=== PATIENT | male | born 1950 | race African-American/Black ===

== ENCOUNTER 2025-03-30 01:34 | Day surgery (SDC) | payer OTHER, SELFPAY ==
[2025-03-17 10:24] VITALS: BMI 31.6
[2025-03-30] VITALS (7 sets, daily range): BP systolic 100–157; BP diastolic 58–89; PULSE 62–81; RESP 18–21; TEMP 36.7; O2SAT 99–100; BMI 29.9
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
--- OUTSIDE RECORDS SUMMARY | 2025-03-30 01:37 | XMS_ITS | Clinical Summary ---
Author Organization [facility] Address [address] [place] [address] Care Team Providers Care Office Worker Name Role Phone Unavailable Primary Care Provider Unavailabl e Social History Tobacco Use Types Packs/Day Years Used Date Smoking Tobacco: Never Assessed Sex and Gender Information Value Date Recorded Sex Assigned at Not on file Legal Sex Male 11:40 AM [employer]OURNEY[employer]ACH[employer] Gender Identity Not on file Sexual Orientation Not on file Plan of Treatment Health Maintenance Due Date Last Done Comments Hepatitis C Virus (HCV) Screening 1950 TdaP Immunization 1950 Colonoscopy 1996 Colorectal Cancer Screening 1996 Cologuard 2001 Immunochemical Fecal Occult Blood 2001 Pneumococcal Immunization (5 0+ years) (1 of 1 - PCV) 2001 Zoster Immunization (1 of 2) 2001 Influenza Immunization (#1) 05/11/202408/10, 07/02/2016, 06/26/2016 SARS-COV-2 Immunization ( - 2023- season) 2024 Respiratory Syncytial Virus (RSV) Immunization (Adult) (1 - 1-dose 75+ series) 2026 Hepatitis B Immunization Aged Out No longer eligible based on patient's age to complete this topic Meningococcal Immunization (ACWY) Aged Out No longer eligible b ased on patient's age to complete this topic Rotavirus Immunization Aged Out No lo nger eligible based on patient's age to complete this topic
--- OUTSIDE RECORDS SUMMARY | 2025-03-30 01:37 | XMS_ITS | Clinical Summary ---
Author Organization [facility] Address [address] [address] Care Team Providers Care Press Operator Instant Print Shop Name Role Phone Sonu Berry MD Primary [...] nightly 30 tablet 11 2 Active multivitamin-m dw-[id number]-vit K 45 mg iron- 800 mcg-120 mcg [...] without complication Atherosclerotic heart diseas e of [place] coronary artery without angina pectoris 09/07/2020 Essential [...] RS) 11/30/2020,11/11/2020 Pneumococcal Conjugate PCV 13 09/23/2020 Surgical History Surgery Date Site/Laterality Comments BRAIN SURGERY Family History Medical History Relation Name Comments Cancer Brother 1 Family history of malignant neoplasm - (Added by TW Conv) Diabetes Brother 2 Family history of diabetes mellitus - (Added by TW Conv) Heart disease Brother 2 Cancer Father Cancer Mother Diabetes Mother Diabetes Paternal Grandmother Cancer Sister Diabetes Sister Family history of diabetes mellitus - (Added by TW Conv) Relation Name Status Comments Brother 1 Brother 2 Father Mother Paternal Grandmother Sister Social History Tobacco Use Types Packs/Day Years [...] week 03/17/2022 How often do you attend [facility] or hoahaoism services? Never 03/17/2022 Do you belong to any clubs o r organizations such as religion groups, unions, fraLaFourchette or athletic groups, or school groups? Yes [...] place to sleep or slept in a mcc (including now)? 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 Gender Identity Not on file Sexual Orientation Not on file Obstetrics History Last Filed Vital Signs Vital Sign Reading Time Taken Comments Blood Pressure 115/81 11/20/2023 10:09 AM CDT Pulse 72 11/20/2023 10:09 AM CDT Temperature 36.8 C (98.2 F) 03/21/2022 8:04 AM CDT Respiratory Rate 18 03/21/2022 8:04 AM CDT Oxygen Saturation 99% 03/21/2022 8:04 AM CDT Inhaled Oxygen Concentration - - Weight 103.8 kg (228 lb 12.8 oz) 11/16/2022 9:57 AM CLAM DREDGER Height 182.9 cm (6') 11/20/2023 10:09 AM CDT Body Mass Index 31.03 11/16/2022 9:57 AM CLAM DREDGER Plan of Treatment Health Maintenance Due Date Last Done Comments Albumin Creatinine Ratio, Urine 1950 Colon Cancer Screening-Colonoscopy 1950 Hepatitis C Screening 1950 Prostate Cancer Screening-PSA 1950 Dilated Eye Exam 1950 Foot Exam 1950 DTaP/Tdap/Td Vaccine (1 - Tdap) 1962 Hepatitis B Screening 1969 Zoster Vaccine (1 of 2) 2001 Abdominal Aortic Aneurysm (A AA) Screen 2016 02/08/2015, 01/19/2015 Well Visit 65+ 2016 Hemoglobin A1C 08/21/2022 02/19/2022 Depression Screening 02/18/2023 02/18/2022 Lipid Panel 03/16/2023 03/16/2022 eGFR 03/20/2023 03/20/2022, 03/10, 03/18/2022, Additional history exists Fall Risk Assessment 03/21/2023 03/21/2022 Covid-19 Vaccine (2023-2 5 season) 2024 09/24/2021, 12/04/2020, 11/30/2020, Additional history exists Influenza Vaccine (#1) 2025 , 06/10/2020, 08/19/2019, Additional history exists Pneumococcal vaccine 65+ Completed 01/03/2024, 09/10 Procedures Procedure Name Priority Date/Time Associated Diagnosis [...] 90 - 130 mL/min/1. 73 m2 [facility] Comment: Interpretive Data Reference Interval Normal >/= [...] 9:22 PM CDT 03/20/2022 9:35 PM CDT us Juan Dey MD LAB BLOOD ORDERABLES F inal Result [facility] [place] [address] * (ABNORMAL) Lipid panel (03/16/2022 11:08 PM CDT) Cholesterol 79 30 - 199 mg/dL [facility] Comment: Interpretive Data Ages < or [...] on 2018. Triglycerides 59 <=149 mg/dL [facility] Comment: Interpretive Data Ages < or [...] Pediatrics 2011;128:S213 2. NCEP Expert Panel. Circulation 2003;110:227 Current Interpretive Data was last revised on 2018. HDL 39(L) >=40 mg/dL [facility] Comment: Interpretive Data Ages < or [...] 2018. LDL, calculated 28 <=129 mg/dL [facility] Comment: Interpretive Data Ages < or [...] on 2018. Non-HDL Cholesterol 40 mg/dL [facility] Comment: Interpretive Data Ages < or [...] last revised on 2018. Chol/HDL ratio 2 [facility] Blood 03/16/2022 11:0 8 PM CDT 03/17/2022 6:28 AM CDT Juan Dey MD LAB BLOOD ORDERABLES F inal Result [facility] Department [place] [address] * (ABNORMAL) Hemoglobin A1c (02/19/2022 12:25 AM CDT) Hgb A1C 5.9(H) 4.0 - 5.6 % [facility] Estimated Average Glucose 123 mg/dL [facility] Comment: The ADA recommends reporting an estimated Average Glucose (eAG) with all Hemoglobin A1c results using the equation derived from a study of 507 normal and diabetic adults. Minority populations were underrepresented and children were not included. (Diabetes Care 2020; 43(S1): S66-S76). The eAG is not equivalent to a fasting glucose. Blood 02/19/2022 12:2 5 AM CDT 02/19/2022 12:39 AM CDT Génesis Oliva Gould NP LAB BLOOD ORDERABLES Final Result [facility] Department [place] [address] * CT Abdomen Pelvis W Contrast (02/08/2015 2:35 AM CDT) Anatomical Region Laterality Modality Body N/A Computed Tomogra phy 02/08/2015 2:35 AM CDT Narrative 02/08/2015 9:28 AM CDT ROBBIE TIAN M.D. HAMILTON DE LEON M.D. FINAL REPORT The radiology attending physician has personally reviewed this study, and has reviewed and/or edited this written report and agrees with it. ACC# Date Time Exam [id number] Feb 08, 2015 02:35:[id number] Abd & Pelvis with cont ACC# Date Time Exam [id number] Feb 08, 2015 02:35:[id number] Abd & Pelvis with cont EXAMINATION: [...] TIAN M.D. on Feb 08 2015 9:28A [id number] Procedure Note Provider, MD Eh - 01/01/2017 ROBBIE TIAN M.D. HAMILTON DE LEON M.D. FINAL REPORT The radiology attending physician has personally reviewed this study, and has reviewed and/or edited this written report and agrees with it. ACC# Date Time Exam [id number] Feb 08, 2015 02:35:[id number] Abd & Pelvis with cont ACC# Date Time Exam [id number] Feb 08, 2015 02:35:[id number] Abd & Pelvis with cont EXAMINATION: [...] TIAN M.D. on Feb 08 2015 9:28A [id number] Historical Provider MD [facility] CT PROCEDURES Final R esult from Last 3 Months or Most Recently Relevant to Health Maintenance Insurance IDPA [facility] MEDICARE HMO [facility] MEDICARE HMO [employer] CHOICE MEDICARE PPO MEDICARE ADVANTAGE [employer] CHOICE MEDICARE PPO IDME Advance Directives For more information, please contact: [phone] * Full Code (Latest Code Status on File) Date Activated Date Inactivated Comments 03/17/2022 3:24 AM 03/21/2022 5:27 PM * Full Code Date Activated Date Inactivated Comments 02/18/2022 5:38 PM 02/22/2022 6:32 PM * Full Code Date Activated Date Inactivated Comments 02/03/2022 6:19 AM 02/04/2022 5:26 PM Care Teams Press Operator Instant Print Shop Relationship Specialty Start Date End Date Sonu Berry MD [address] [place] [address] PCP - General Internal Medicine 02/17/22
--- OUTSIDE RECORDS SUMMARY | 2025-03-30 01:37 | XMS_ITS ---
Author Organization [facility] Address [address] [address] [place] [place] [address] Care Team Providers Care Bobbin Dumper Name Role Phone Sonu Berry MD Primary Care Provide r Active Problems Problem Noted Date Diagnosed Date [...] without complication Atherosclerotic heart diseas e of [place] coronary artery without angina pectoris 09/07/2020 Essential (primary) hypertension 09/07/2020 Hyperlipidemia 09/07/2020 Ventricular tachycardia 08/17/2020 Dizziness 07/27/2020 Malignant neoplasm of colon 07/27/2020 Shortness of breath 07/27/2020 Smoker 07/27/2020 History of malignant neoplasm of colon 5 Obesity with body mass index 30 or greater 12/30 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 Past Treatment and Therapy Plans No past plan information found. Lifetime Dose Tracking * Chemical Lifetime Dose Automatic Entry Manual Entr y Fluoro Time 57.3 minutes 57.3 minutes 0 minutes Air kerma at the reference point (Ka,r) 3,401 mGy 3 ,401 mGy 0 mGy DLP 14,102 mGycm 14,102 mGycm 0 mGycm
--- OUTSIDE RECORDS SUMMARY | 2025-03-30 01:37 | XMS_ITS | Continuity of Care Document ---
Author Organization [facility] Address [address] [place] [address] Phone Care Team Providers Care Cane Flume Watcher Name Role Phone Nurse, Registered Unavailable Unavailable Procedures Procedure Date Immunization Admin COVID19 Pfizer Dose 3 COVID19 Vaccine Pfizer Immunization Admin COVID19 Pfizer Dose 3 Advance Directives Directive Yes / No Effective Date File Name No Information Encounters Encounter Description Practice Location Reason(s) For Visit Diagnoses Date Provider Providers Copied on Encounter [facility] , [address], [place], [place], [id number], tel:[phone] COVID Mobile COVID (chief complaint) No Information Nurse Registered . [address], [place], [place], [id number], . tel:[phone] Referring Provider: Hiral Nevarez, [address], [place], [address]. tel:[phone] Family History Family Member Type Diagnosis Age At Onset No Information Immunizations Vaccine Date Status Comments COVID-19 Pfizer (12 years and older) administered Note: Pt tolerated w ell admin by Jeronimo Bar MA ; Source: New Immunization Record Payers Payer name Insurance type Covered libertarian ID Authoriza tion(s) COVID19 HRSA Uninsured Testi ng and Treat CI [id number] Social History Type Description Quantity Date Captured Comments Sex Male Smoking Status No Information Chief Complaint And Reason For Visit From encounter dated '09/24/2021 00:00'. COVID (chief complaint). Description: Booster COVID-19 Pfizer (12 years and older) [id number] Administered New 09/24/2021 09/24/2021 02:06 PM Denise Cohen 0.3 [id number] Dose 3 03/09/2022 [employer] Intramuscular Left Deltoid Pt tolerated well admin by Denise Thompson MA, [place] (09/24/2021) Reason For Referral Reason For Referral No Information History Of Present Illness Encounter Date Complaint History Of Prese nt Illness COVID Booster COVID-19 Pfizer (12 years and older) 208 [id number] Administered New 09/24/2021 09/24/2021 02:06 PM Denise Cohen 0.3 [id number] Dose 3 03/09/2022 [employer] Intramuscular Left Deltoid Pt tolerated well admin by Denise Thompson MA, Celsey (09/24/2021) Functional Status Date Functional Assessmen t No Information Instructions Date Instruction Additional Infor mation No Information Assessments Type Assessment Date No Information Patient Care Teams Name Effective Dates (start - stop) Status Members No Information
--- OUTSIDE RECORDS SUMMARY | 2025-03-30 01:37 | XMS_ITS | Clinical Summary ---
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 Gender Identity Not on file Sexual Orientation Not on file Plan of Treatment Health Maintenance Due Date Last Done Comments Colorectal Cancer Screening Colonoscopy (10 Years) 1950 Hepatitis C 1969 DTaP, Tdap and Td Vaccines ( 1 - Tdap) 1970 Pneumococcal Vaccine: 50+ Ye ars (1 of 1 - PCV) 2001 Zoster Vaccines (1 of 2) 2001 Annual Medicare Wellness Visit 2016 COVID-19 Vaccine (2023-2 5 season) 2024 RSV Immunization or 60+ Years (1 - 1-dose 75+ series) 2026 Meningococcal B Vaccine Aged Out No l onger eligible based on patient's age to complete this topic Meningococcal Vaccine Aged Out No bisi hien eligible based on patient's age to complete this topic RSV Immunizations Under 20 Months Aged Out No longer eligible based on patient's age to complete this topic Insurance [address] [place] [address] MEDICAID MED REPLACE [facility] MEDICARE SOLUT[place] [id number]
[2025-03-30] MEDS: LACTATED RINGERS 1,000 ML 150 ML IV CONT (08:16)
--- NOTE | 2025-03-30 08:45 | WPDANESEPPF ---
Anes - Initial Pre Proc Eval Procedure: Operation Date: 03/30/25 09:30 Proposed Procedures p Screening Colonoscopy - Collins Castro MD Date/Time: 03/30/25 08:45 Surgeon: Collins Castro MD Pre Op Diagnosis: screening colon Patient Data Age: 74 Gender: M Height: 1.83 m Weight: 100.4 kg Last Vital Signs Temp 98.0 F 03/30/25 07:55 Pulse 81 03/30/25 07:55 Resp 18 03/30/25 07:55 BP 140/89 03/30/25 07:55 Pulse Ox 99 03/30/25 07:55 O2 Del Method Room Air 03/30/25 07:55 Allergies Allergy/AdvReac Type Severity Reaction Status Date / Time No Known Allergies Allergy Verified 03/30/25 08:00 Home Medications ?Medication ?Instructions ?Recorded ?Confirmed ?Type albuterol sulfate 90 mcg/actuation 1 inh inhalation DAILY 03/17/25 03/30/25 History aerosol inhaler atorvastatin 40 mg tablet 40 mg PO QPM 03/17/25 03/30/25 History bisacodyl 5 mg tablet (Laxative 5 mg PO Q6H PRN constipation 03/17/25 03/17/25 History (bisacodyl)) ipratropium bromide 42 mcg (0.06 2 spray intranasal DAILY 03/17/25 03/30/25 History %) nasal spray losartan 25 mg tablet 25 mg PO DAILY 03/17/25 03/30/25 History metformin 500 mg tablet 500 mg PO BID 03/17/25 03/30/25 History metoprolol succinate 25 mg 25 mg PO Q12H 03/17/25 03/30/25 History tablet,extended release 24 hr Laboratory Tests 03/30/25 08:15 POC Capillary Glucose 121 H mg/dl (65-105) Patient hx anesthesia problems: none Family hx anesthesia problems: none Results Review: All pre-operative results and documents have been reviewed as part of the pre-operative evaluation. [facility] Social History Social History Years smoked: 43 Smoking status: Current every day smoker Tobacco type: cigarettes Additional smoking assessment comments: 1 pack a week Living arrangements: alone Spiritual care concerns: No Anes - Eval Final PreProcedure Day of Procedure 03/30/25 08:45 Patient weight: obese Heart: regular rate and rhythm Lungs: clear to auscultation Airway: Mallampati scale class II Neurological: alert and oriented Last oral intake: >/= 8 hours ASA classification: III Emergent: no Anesthetic plan: proceed Anesthesia type and monitoring: general GIVS and standard monitoring Results Review: All pre-operative results and documents have been reviewed as part of the pre-operative evaluation. Informed Consent: The patient's anesthetic plan and its attendant risks and benefits were discussed with the patient/family/POA. Questions were solicited and answers provided to the satisfaction of the patient/family/POA.
--- NOTE | 2025-03-30 08:51 | PM.IMHP ---
H&P: HPI History of Present Illness Date/Time: 03/30/25 08:51 Chief Complaint: History of colorectal cancer Narrative: the patient had hemicolectomy 8 years ago for colorectal cancer. His last colonoscopy was 3 years ago and had polyps. There are no records available to specify the location of the polyps and the segment of the colon that was removed. Review of Systems Review of Systems: All systems reviewed & are unremarkable except as noted in HPI and below PMFSH Social History Social History Years smoked: 43 Smoking status: Current every day smoker Tobacco type: cigarettes Additional smoking assessment comments: 1 pack a week Living arrangements: alone Spiritual care concerns: No Meds Home Medications and Allergies Home Medications ?Medication ?Instructions ?Recorded ?Confirmed ?Type albuterol sulfate 90 mcg/actuation 1 inh inhalation DAILY 03/17/25 03/30/25 History aerosol inhaler atorvastatin 40 mg tablet 40 mg PO QPM 03/17/25 03/30/25 History bisacodyl 5 mg tablet (Laxative 5 mg PO Q6H PRN constipation 03/17/25 03/17/25 History (bisacodyl)) ipratropium bromide 42 mcg (0.06 2 spray intranasal DAILY 03/17/25 03/30/25 History %) nasal spray losartan 25 mg tablet 25 mg PO DAILY 03/17/25 03/30/25 History metformin 500 mg tablet 500 mg PO BID 03/17/25 03/30/25 History metoprolol succinate 25 mg 25 mg PO Q12H 03/17/25 03/30/25 History tablet,extended release 24 hr Allergies Allergy/AdvReac Type Severity Reaction Status Date / Time No Known Allergies Allergy Verified 03/30/25 08:00 Vital Signs Vital Signs - 24 hr 03/30/25 07:55 Temperature 98.0 F Pulse Rate 81 Respiratory Rate 18 Blood Pressure 140/89 Pulse Oximetry 99 Oxygen Delivery Room Air Exam Const: General: cooperative and healthy appearing Resp: Effort & Inspection: normal respiratory effort and able to speak in complete sentences Auscultation: clear to auscultation bilaterally Cardio: Rate: regular rate Rhythm: regular rhythm GI: Inspection: normal to inspection GI Palp: No No hepatosplenomegaly present Auscultation: normal bowel sounds Rectal Exam: deferred Skin: General skin exam: normal color Psych: Appearance: grossly normal Mental Status: mental status grossly normal Assessment and Plan Assessment and plan (1) History of colorectal malignant neoplasm: Code(s): Z85.048 - Personal history of other malignant neoplasm of rectum, rectosigmoid junction, and anus Status: Acute Assessment and Plan: The patient is deemed a good candidate for the procedure. Consent signed. Will proceed.
[2025-03-30] MEDS: SIMETHICONE ORAL SUSPENSION 20 MG/0.3 ML 30 ML BOTTLE 0.6 ML IRRIGATION (09:05)
--- NOTE | 2025-03-30 09:15 | S_PTH ---
PATIENT: Desmond Contreras LOC: ANGE U#:[id number] AGE/SX: 74/M ROOM: RE03/30/[address]: Collins Castro MD : 1950 BED: DIS: 03/30/2025 SPEC #: [id number] RECD: 03/30/25 10:20 STATUS: AMINATA REMaster #: [id number] REGINA: 03/30/25 09:[address]: Collins Castro DEPT: [facility] Surgical RECD BY: Krissy Perez ENTERED: 03/30/25 10:21 SP TYPE: Surgical OTHR DR: Gavin BerryMD Tissues: A - Colon Polypectomy B - Colon Polypectomy Procedures: Hematoxylin and Eosin Stain Gross and Microscopic Level 4
--- NOTE | 2025-03-30 09:25 | ECG_ITS ---
Test Date: 2025-03-30 09:29:48 Measurements Intervals [place] Rate: 60 P: 0 SC: 0 QRS: -56 QRSD: 97 T: -22 QT: 403 QTc: 404 Interpretive Statements JUNCTIONAL ESCAPE RHYTHM No previous ECG available for comparison Electronically Signed On 03-30-2025 11:27:20 CDT by Reji Kaiser M.D.
--- NOTE | 2025-03-30 09:49 | SUR.PHASEII ---
Patient received an EKG per SMALL APPLIANCE ASSEMBLY SUPERVISOR request. EKG resulted and Dr. Givens came and spoke with the patient. Dr. Givens to speak with the patient's global recruiter.
--- NOTE | 2025-03-30 10:11 | SUR.PHASEII ---
Dr. Givens spoke with Dr. Mcgee, patients day habilitation specialist, Patient is okay to be discharged and to follow up with his day habilitation specialist as an outpatient.
--- NOTE | 2025-03-30 10:21 | SUR.OPER ---
0915: PROCEDURE ABORTED DUE TO PT VASOVAGAL RESPONSE AND SHAHRAM ELEVATOR STARTER REQUEST. SEE ANESTHESIA NOTES.
== END 2025-03-30 10:17 | disposition home or self-care (01) ==
PROVIDERS: PCP Internal Medicine; Referring Provider Internal Medicine; Visit Provider Internal Medicine Gastroenterology
PROC: 0DJD8ZZ Inspection of Lower Intestinal Tract, Via Natural or Artificial Opening Endoscopic (ICD-10-PCS; CPT 45378; principal; 2025-03-30 09:30)
DX: Z08 Encounter for follow-up examination after completed treatment for malignant neoplasm (principal); D12.3 Benign neoplasm of transverse colon; D12.4 Benign neoplasm of descending colon; R00.1 Bradycardia, unspecified; Z85.048 Personal history of other malignant neoplasm of rectum, rectosigmoid junction, and anus; F17.210 Nicotine dependence, cigarettes, uncomplicated; E66.9 Obesity, unspecified; Z68.30 Body mass index [BMI] 30.0-30.9, adult
CPT/HCPCS: 45385; 82948; 88305; 93005; J2003; J2704; J7120